=== PATIENT | female | born 1950 | race Caucasian/White ===

== ENCOUNTER 2020-11-08 17:03 | Emergency (ER) | payer BC, OTHER ==
[2020-11-08 17:14] VITALS: TEMP 98.5; BMI 27.4
[2020-11-08] MEDS ORDERED: BAMLANIVIMAB 700 MG in SODIUM CHLORIDE 250 ML IVPB ONE (17:22)
[2020-11-08 18:39] LABS: BASO % 0.7 % (0-2.0); EOS % 0.4 % (0-4.5); HEMOGLOBIN 14.3 GM/dL (10.7-15.3); LYMPH % 43.1 % (8-40); MCH 28.8 pg (25.7-33.7); MCHC 33.3 g/dl (32.0-36.0); MEAN CELL VOLUME 86.6 fl (80-96); MEAN PLT VOLUME 6.9 fl (7.5-11.1); MONO % 19.1 % (3.8-10.2); NEUT % 36.7 % (42.8-82.8); PLATELET COUNT 308 K/MM3 (134-434); RBC 4.97 M/mm3 (3.60-5.2); RDW 14.7 % (11.6-15.6); WHITE BLOOD COUNT 2.8 K/mm3 (4.0-10.0)
[2020-11-08 18:58] LABS: POTASSIUM 5.1 mmol/L (3.5-5.1)
[2020-11-08 19:01] LABS: CALCIUM 8.6 mg/dL (8.5-10.1)
[2020-11-08 19:02] LABS: BLOOD UREA NITROGEN 16.5 mg/dL (7-18)
[2020-11-08 19:05] LABS: CREATININE 0.9 mg/dL (0.55-1.3)
[2020-11-08 19:06] LABS: BILIRUBIN,TOTAL 0.4 mg/dL (0.2-1); TOT PROT 8.1 g/dl (6.4-8.2)
[2020-11-08 21:20] VITALS: BP 141/86; PULSE 94
== END 2020-11-08 21:21 | disposition home or self-care (01) ==
LOC: JER 17:03
PROC: 3E033GC Introduction of Other Therapeutic Substance into Peripheral Vein, Percutaneous Approach (ICD-10-PCS; principal; 2020-11-08)
DX: U07.1 COVID-19 (principal)
CPT/HCPCS: 36415; 71046-TC-FY; 80053; 85025; 99284-25; M0239; Q0239